=== PATIENT | female | born 1935 | race Caucasian/White ===

== ENCOUNTER 2019-07-15 07:15 | Day surgery (SDC) | payer MEDICARE, OTHER ==
--- NOTE | 2019-07-13 10:17 | HP ---
DATE OF SURGERY: 07/15/2019 ADMISSION DIAGNOSIS: Dysphagia. ANTICIPATED PROCEDURE: EGD dilatation. HISTORY OF PRESENT ILLNESS: An 83 year-old with history of reflux, presents for EGD dilatation. PAST MEDICAL HISTORY: ALLERGIES: NONE. MEDICATIONS: Synthroid . PAST SURGICAL HISTORY: Thyroid. SOCIAL HISTORY: Negative. FAMILY HISTORY: Negative. REVIEW OF SYSTEMS: CVS: Elevated cholesterol controlled. She is on Synthroid post-thyroidectomy. GI: She is on Protonix. PHYSICAL EXAMINATION: VITAL SIGNS: Normal. CHEST: Clear. COR: Regular. NECK: No adenopathy. IMPRESSION: Dysphagia. PLAN: EGD dilatation.
[2019-07-15] MEDS ORDERED: Lactated Ringers 1,000 ML IV SCH (08:00)
[2019-07-15] MEDS ORDERED: Lactated Ringers 1,000 ML IV ONE (08:07)
[2019-07-15] MEDS ORDERED: DIPRIVAN 200 MG/20 ML IV ONE (09:45)
[2019-07-15 11:09] VITALS: BP 137/64; PULSE 69; O2SAT 98
--- NOTE | 2019-07-15 13:10 | OP ---
AMENDED REPORT: SURGERY DATE/TIME: 07/15/2019 0952 PREOPERATIVE DIAGNOSIS: Dysphagia. POSTOPERATIVE DIAGNOSES: 1) Light stricture of the esophagus. 2) Grade III gastroesophageal reflux disease. 3) Small hiatal hernia. PROCEDURE: EGD with dilatation. Geronimo-type 48. SURGEON: Ankush Spring M.D. ANESTHESIA: MAC. COMPLICATIONS: None. CONDITION: Stable. INDICATION: A patient requiring evaluation. DESCRIPTION OF PROCEDURE: MAC sedation provided. Good anesthesia level present. Scope was introduced. Pharyngoesophageal junction normal. Esophagus normal down to gastroesophageal junction. Small hiatal hernia, grade III gastroesophageal reflux disease. Stricture size in the high 30's. Fundus, body, antrum satisfactory. Pylorus satisfactory. Duodenal bulb satisfactory. Second portion satisfactory. Scope withdrawn. A Geronimo dilator was chosen size 48. It was placed. The scope reintroduced. The area was size 48 with no suggestion of issues. The scope withdrawn. The patient tolerated the procedure satisfactorily. Discussion was given to the family.
== END 2019-07-15 11:10 | disposition home or self-care (01) ==
LOC: SDC 07:15
PROVIDERS: ATTEND Surgery
DX: K22.2 Esophageal obstruction (principal); K21.9 Gastro-esophageal reflux disease without esophagitis; K44.9 Diaphragmatic hernia without obstruction or gangrene
CPT/HCPCS: 94250; 99100; J2704